=== PATIENT | male | born 2000 | race Caucasian/White ===

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

== ENCOUNTER → 2018-08-09 13:47 | Outpatient (CLI) | payer MEDICAID, SELFPAY ==
[2018-08-08 16:26] VITALS: BMI 42.4
== END ==
PROVIDERS: Family Provider Pediatrics; PCP Pediatrics; Referring Provider Physician Assistant; Visit Provider Physician Assistant
DX: J02.9 Acute pharyngitis, unspecified (principal)
CPT/HCPCS: 87081

== ENCOUNTER → 2023-08-30 | Outpatient (CLI) | payer MEDICAID, SELFPAY ==
[2023-08-30 12:24] LABS: Absolute Lymphocyte Count 2.45 X10^3/uL (0.83-4.51); Absolute Neutrophil Count 5.6 X10^3/uL (2.0-7.7); Basophil# 0.02 X10^3/uL; Basophil% 0.2 % (0-1); Eosinophil# 0.17 X10^3/uL; Eosinophils% 1.9 % (0-5); Hematocrit 46.7 % (40-54); Hemoglobin 15.5 g/dL (13.0-16.5); Lymphocyte # 2.45 X10^3/ul (0.83-4.51); Mean Corp Hgb Conc 33.2 g/dL (32-36); Mean Corpuscular Hgb 28.7 pg (27.0-32.0); Mean Corpuscular Volume 86.3 fL (80-94); Mean Platelet Vol. 10.6 fl (6.2-12.0); Monocyte% 8.8 % (0-10); NRBC Flagged by Analyzer 0 % (0-5); Neutrophil # 5.59 X10^3/uL (2.7-7.7); Neutrophil % 61.7 % (47-70); Platelet Count 211 K/mm3 (150-450); RBC Distribution Width CV 14.2 % (11.6-14.6); RBC Distribution Width SD 44.5 fl (35.1-43.9); Red Blood Count 5.41 M/mm3 (4.6-6.2); White Blood Count 9.1 K/mm3 (4.4-11.0)
[2023-08-30 13:01] LABS: Vitamin D,25 Hydroxy 25.7 ng/mL
[2023-08-30 13:30] LABS: ALB/GLOB Ratio 1.4 RATIO (0.9-2.4); AST(SGOT) 13 U/L (15-37); Alanine Aminotransfer ALT/SGPT 23 U/L (16-61); Albumin, Serum 4.5 g/dL (3.2-5.0); Alkaline Phosphatase 60 U/L (45-117); Anion Gap 7 (5-15); BUN 18 mg/dL (7-18); BUN/Creat Ratio 17.6 RATIO (10-20); Calcium,Total 9.7 mg/dL (8.5-10.1); Chloride 107 mmol/L (98-107); Cholesterol 187 mg/dL (200); Creatinine, Serum 1.02 mg/dL (0.70-1.30); EST Glomerular Filtration Rate 94 mL/min (>60); Est Glom Filt Rate - Afr Amer 114 mL/min (>60); Globulin 3.2 g/dL (2.2-4.2); Glucose 100 mg/dL (74-106); High Density Lipoprotein 45 mg/dL; Potassium 3.9 mmol/L (3.5-5.1); Protein, Total 7.7 g/dL (6.4-8.2); Sodium Level 139 mmol/L (136-145); Triglycerides 204 mg/dL; Very Low Density Lipoprotein 41 mg/dL (5-40)
--- OUTSIDE RECORDS SUMMARY | 2023-08-30 19:25 | XMS RPT_ITS | CCD ---
Author Name Unknown Address [address] [facility] [address] [place] [address] Organization [facility] Care Team Providers Care Gas Adjuster Name Role Phone Unavailable Primary Care Provider Unavailabl e Allergies Allergy Classification Reported Allergen(s) Allergy Type Date of Onset Reaction(s) Facility (3 sources) Penicillins; Translations: [PENICILLINS] Drug Intolerance 4 Hives [facility] Work Phone: Medications Completed/Discontinued Medications Medication Drug Class(es) Dates Sig (Normalized) Sig (Original) cloNIDine (2 sources) Central alpha-2 Adrenergic Agonist CLONIDINE HCL ORAL T rosana by mouth. 0 Active Problems Problem Classification Problem Date Documented Da te Episodic/Chronic Other upper respiratory infections (1 source) Acute upper respiratory infection; Translations: [Acute upper respiratory infection, unspecified] 08-16-2023 Episodic Results Test Name Value Interpretation Reference Range Facil ity Vital Signs Date Time Vital Sign Value Performing Clinician Shirin goff 08-16-2023 12:35-0500 Body temperature 98.4 [degF] Ravi Celis APRN.PATIENTS TRANSPORTER Work Phone: [facility] 08-16-2023 12:35-0500 Body weight 105.23 kg Ravi Celis APRN.PATIENTS TRANSPORTER Work Phone: [facility] 08-16-2023 12:35-0500 Diastolic blood pressure 80 mm[Hg] Ravi Celis APRN.PATIENTS TRANSPORTER Work Phone: [facility] 08-16-2023 12:35-0500 Heart rate 88 /min Ravi Celis APRN.PATIENTS TRANSPORTER Work Phone: [facility] 08-16-2023 12:35-0500 Respiratory rate 18 /min Ravi Celis APRN.PATIENTS TRANSPORTER Work Phone: [facility] 08-16-2023 12:35-0500 SaO2% (BldA) [Mass fraction] 96 % Ravi Celis APRN.CNP Work Phone: [facility] 08-16-2023 12:35-0500 Systolic blood pressure 118 mm[Hg] Ravi Celis APRN.CNP Work Phone: [facility] Encounters Encounter Date Encounter Type Care Provider Facility Start: 08-17-2023 Telephone encounter Raymond Thomson MD Work Phone: [facility] Start: 08-16-2023 End: 08-16-2023 ambulatory Facility:[facility] Start: 08-16-2023 End: 08-16-2023 Patient encounter procedure Ravi Celis APRN.CNP Work Phone: [facility] Procedures Date Procedure Procedure Detail Performing Clinician Start: 08-16-2023 COVID & INFLUENZA A/ B & RSV NAAT, ROUTINE Ravi Celis APRN.PATIENTS TRANSPORTER Work Phone: Plan of Treatment Date Care Activity Detail Author Start: 06-18-2023 Depression Assessment Depression Ass essment [facility] Start: 02-16-2023 Influenza vaccination Influenza Vacc ine (#1) [facility] Start: 08-03-2019 Urine microalbumin profile DTa P,Tdap,Td Vaccine (7 - Td or Tdap) [facility] Start: 2016 Hepatitis C screening Hepatitis C Sc john [facility] Start: 2016 HIV screening HIV Screening [facility] Start: 2012 Peds To Adult Transi tion Annual Assessment Peds To Adult Transition Annual Assessment [facility] Start: 2010 Peds To Adult Transi tion Initial Discussion Peds To Adult Transition Initial Discussion [facility] Start: 1998 Covid-19 Vaccine (#1) Covid-19 Vacci ne (#1) [facility] Immunizations Immunization Date Immunization Notes Care Provider Kevin johnston 04-16-2015 influenza virus vacc ine, unspecified formulation Ravi Celis APRN.CNP Work Phone: [facility] Payers Date Payer Category Payer Medicaid [employer] [facility] [id number] 2022-Present [phone] [address] [place] [address] Medicaid [id number] 2022 Medicaid [id number] Social History Date Type Detail Facility Start: 08-16-2023 Tobacco smoking status NHIS Never sm oked tobacco [facility] History of tobacco use Passive smoker [facility] Start: 08-16-2023 [facility] Start: 08-16-2023 History of Social function [facility] Start: 08-16-2023 Tobacco use panel [facility] Start: 08-16-2023 Tobacco Comment parent smokes outsid e [facility] Start: 1998 Sex Assigned At Not on file [facility] Note 08-17-2023 Telephone Encounter - Cindy Loagn MA - 08/17/2023 8:17 AM ESTTelephone Encounter - Cindy Logan MA - 08/17/2023 8:15 AM EST Note Date & Type Note Facility 08-17-2023 Miscellaneous Notes Formattin g of this note might be different from the original. Left VM instructing patient to return call to receive results. Cindy Logan MA ----- Message from Raymond August MD sent at 08/17/2023 7:06 AM EST ----- Negative COVID, Influenza, and RSV documented in this encounter [facility] Progress note 08-16-2023 Note Date & Type Note Facility 08-16-2023 Note HNO ID: [id number] Author: RAVI CELIS APRN.ALEXA Service: ? Author Type: Nurse Practitioner Type: Progress Notes Filed: 08/16/2023 12:48 Note Text: CC: Patient presents with: Cough: Chest congestion, nausea, diarrhea, body aches, fever, fatigue x 3 days HPI: Adeel Olea is a 23 year old male who presents to the office with complaint of chest congestion, head congestion, cough, nonproductive, and fever for a few days. Symptoms are staying the same. Associated symptoms includes fever. Denies nausea, vomiting , and diarrhea. Treatments tried include nothing so far. with no relief of symptoms. Sick contacts: unknown. History of asthma, frequent episodes of bronchitis, chronic bronchitis, bronchiectasis or COPD: No Smoker: No Seasonal/environmental allergies: No The ROS is otherwise negative. The patient's pmh, medications, allergies, and past visits are reviewed. PHYSICAL EXAM: BP 118/80 Pulse 88 Temp 36.9 ?C (98.4 ?F) Resp 18 Wt 105.2 kg (232 lb) SpO2 96% General appearance: alert, cooperative, pleasant, in no acute distress Head: Normocephalic Eyes: EOM's intact, conjunctiva pink and moist, no icterus, sclera white, non-injected Ears: Right ear: External ear/canal- Normal, TM - clear with good landmarks. Left ear: External ear/canal- Normal, TM - clear with good landmarks Oropharynx:moist without lesions, No erythema, exudates or tonsillar hypertrophy. Heart: Negative. RRR without obvious murmur, gallop, or rubs. No ectopy. Lungs: clear to auscultation, without rales or wheeze, good air exchange No past medical history on file. No past surgical history on file. ALLERGIES Penicillins MEDICATIONS CLONIDINE HCL ORAL Take by mouth. (Patient not taking: Reported on 08/16/2023) No family history on file. Social History Tobacco Use Smoking status: Never Passive exposure: Yes Tobacco comments: parent smokes outside ASSESSMENT/PLAN: 1. URI, acute - ICD9: 465.9, ICD10: J06.9 - COVID AND INFLUENZA A/B AND RSV NAAT, ROUTINE Otc meds over the counter Potential red flag symptoms discussed with the patient. Reviewed appropriate action plan to take if red flag symptoms occur. Patient agreeable to treatment plan. Ravi Celis APRN.PATIENTS TRANSPORTER [facility] History of Present illness Narrative 08-16-2023 Ravi Celis APRN.[facility] - 08/16/2023 12:46 PM EST Note Date & Type Note Facility 08-16-2023 History of Presen t illness Narrative CC: Patient presents with: Cough: Chest congestion, nausea, diarrhea, body aches, fever, fatigue x 3 days HPI: Adeel Olea is a 23 year old male who presents to the office with complaint of chest congestion, head congestion, cough, nonproductive, and fever for a few days. Symptoms are staying the same. Associated symptoms includes fever. Denies nausea, vomiting , and diarrhea. Treatments tried include nothing so far. with no relief of symptoms. Sick contacts: unknown. History of asthma, frequent episodes of bronchitis, chronic bronchitis, bronchiectasis or COPD: No Smoker: No Seasonal/environmental allergies: No The ROS is otherwise negative. The patient's pmh, medications, allergies, and past visits are reviewed. PHYSICAL EXAM: BP 118/80 Pulse 88 Temp 36.9 C (98.4 F) Resp 18 Wt 105.2 kg (232 lb) SpO2 96% General appearance: alert, cooperative, pleasant, in no acute distress Head: Normocephalic Eyes: EOM's intact, conjunctiva pink and moist, no icterus, sclera white, non-injected Ears: Right ear: External ear/canal- Normal, TM - clear with good landmarks. Left ear: External ear/canal- Normal, TM - clear with good landmarks Oropharynx:moist without lesions, No erythema, exudates or tonsillar hypertrophy. Heart: Negative. RRR without obvious murmur, gallop, or rubs. No ectopy. Lungs: clear to auscultation, without rales or wheeze, good air exchange No past medical history on file. No past surgical history on file. ALLERGIES Penicillins MEDICATIONS CLONIDINE HCL ORAL Take by mouth. (Patient not taking: Reported on 08/16/2023) No family history on file. Social History Tobacco Use Smoking status: Never Passive exposure: Yes Tobacco comments: parent smokes outside ASSESSMENT/PLAN: 1. URI, acute - ICD9: 465.9, ICD10: J06.9 - COVID & INFLUENZA A/B & RSV NAAT, ROUTINE Otc meds over the counter Potential red flag symptoms discussed with the patient. Reviewed appropriate action plan to take if red flag symptoms occur. Patient agreeable to treatment plan. Ravi Celis APRN.PATIENTS TRANSPORTER documented in this encounter [facility] Evaluation note Note Date & Type Note Facility documented in this encounter [facility] Summary Purpose Family History No Family History Records FoundNo Family History Records Found Advance Directives No Advanced Directives Records FoundNo Advanced Directives Records Found Health Concerns Infection Onset Date Last Indicated Resolved Time COVID-19 Rule-Out 08/16/2023 08/16/2023 08/16/2023 11:00 PM EST Additional Source Comments (unrecognized sect ion and content) No Status Records FoundNo Status Records Found INFORMATION SOURCE (unrecogn ized section and content) DATE CREATED AUTHOR AUTHOR'S ORGANIZ ATION 08/19/2023 [facility] Source Comments (unrecognize d section and content) In the event this informatio n is protected by the Federal Confidentiality of Alcohol and Drug Abuse Patient Records regulations: The Federal rules restrict any use of the information to criminally investigate or prosecute any alcohol or drug abuse patient.[facility] the event this information is protected by the Federal Confidentiality of Alcohol and Drug Abuse Patient Records regulations: The Federal rules restrict any use of the information to criminally investigate or prosecute any alcohol or drug abuse patient.[facility] Reason for Visit (unrecogniz ed section and content) FOR RECORDS PERTAINING TO PATIENTS WHO ARE OR HAVE BEEN ENROLLED IN A CHEMICAL DEPENDENCY/SUBSTANCEABUSE PROGRAM, SOME INFORMATION MAY BE OMITTED. This clinical summary was aggregated from multiple sources. Caution should be exercised in using it in the provision of clinical care. This summary normalizes information from multiple sources, and as a consequence, information in this document may materially change the coding, format and clinical context of patient data. In addition, data may be omitted in some cases. CLINICAL DECISIONS SHOULD BE BASED ON THE PRIMARY CLINICAL RECORDS. [facility] [employer] [facility]. provides no warranty or guarantee of the accuracy or completeness of information in this document.
== END | disposition home or self-care (01) ==
LOC: BFHLAB 10:58
PROVIDERS: PCP Family Medicine; Visit Provider Family Medicine
DX: Z00.00 Encounter for general adult medical examination without abnormal findings (principal); E55.9 Vitamin D deficiency, unspecified; R53.83 Other fatigue
CPT/HCPCS: 36415; 80053; 80061; 82306; 85025

== ENCOUNTER → 2025-04-08 | Outpatient (CLI) | payer MEDICAID, SELFPAY ==
[2025-04-08 11:17] LABS: Hematocrit 45.9 % (40-54); Hemoglobin 15.7 g/dL (13.0-16.5); Immature Granulocytes Count 0.050 X10^3/uL (0.0-0.0); Mean Corp Hgb Conc 34.2 g/dL (32-36); Mean Corpuscular Volume 86.3 fL (80-94); Mean Platelet Vol. 10.1 fl (6.2-12.0); NRBC Flagged by Analyzer 0 % (0-5); Platelet Count 208 K/mm3 (150-450); RBC Distribution Width CV 13.5 % (11.6-14.6); RBC Distribution Width SD 41.7 fl (35.1-43.9); Red Blood Count 5.32 M/mm3 (4.6-6.2); White Blood Count 8.9 K/mm3 (4.4-11.0)
[2025-04-08 11:47] LABS: AST(SGOT) 23 U/L (<=37); Alanine Aminotransfer ALT/SGPT 34 U/L (<=46); Albumin, Serum 4.8 g/dL (3.5-5.0); Alkaline Phosphatase 72 U/L (40-129); Anion Gap 13 (5-15); BUN 16 mg/dL (4-19); BUN/Creat Ratio 16.0 RATIO (10-20); Calcium,Total 9.7 mg/dL (7.6-11.0); Carbon Dioxide 24.5 mmol/L (21.0-32.0); Chloride 100 mmol/L (98-108); Globulin 2.6 g/dL (2.2-4.2); Glucose 101 mg/dL (70-99); Potassium 4.0 mmol/L (3.3-5.1); Vitamin B12 833 pg/mL (180-914); Vitamin D,25 Hydroxy 30.0 ng/mL (30-100)
== END | disposition home or self-care (01) ==
PROVIDERS: PCP Family Medicine; Referring Provider Psychiatry & Neurology Psychiatry; Visit Provider Psychiatry & Neurology Psychiatry
DX: Z79.899 Other long term (current) drug therapy (principal); R53.83 Other fatigue
CPT/HCPCS: 36415; 80053; 82306; 82607; 83036; 84443; 85025